=== PATIENT | female | born 1975 | race Caucasian/White ===

== ENCOUNTER 2016-09-05 11:27 | Emergency (ER) | payer BC ==
[2016-09-05 12:06] LABS: BLOOD UREA NITROGEN 8 mg/dL (7-17); CALCIUM 9.9 mg/dL (8.4-10.2); CHLORIDE 105 mmol/L (98-107); EST GLOMERULAR FILTRATION RATE > 60 mL/min; GLUCOSE 94 mg/dL (70-100); SODIUM 139 mmol/L (137-145)
[2016-09-05 12:30] LABS: TROPONIN I < 0.012 ng/mL (0.00-0.034)
--- NOTE | 2016-09-05 13:07 | CT REPORT ---
HISTORY: Chest pain and shortness of breath COMPARISON: None. TECHNIQUE: This examination was performed using automated exposure control, adjustment of mA or kV according to patient size, and/or use of iterative reconstruction technique. Axial CT imaging from the thoracic i nlet through the upper abdomen following administration of IV contrast during peak opacification of t he pulmonary arteries, multiplanar reformatted and 3-D images are evaluated. Isovue-370 administered IV. FINDINGS: 4 mm nodule right middle lobe adjacent to the fissure favored benign. Reference series 5 image 46. Th ere is no consolidation. No effusion or pneumothorax. Ground glass opacity in the left upper lobe maryam suring 8 mm. Reference series 5 image [address] Please consider CT in 6-12 months. Cardiac structures and great vessels are unremarkable. There is no pathologic mediastinal or hilar ad enopathy. There is no focal bone lesion. The visualized organs of the upper abdomen are unremarkable. Descending aorta, aortic arch, descending thoracic aorta widely patent, visualized portions of the in nominate artery, left and right subclavian, left and right vertebral, and left and right common carot id arteries patent, no aneurysm, dissection, or flow limiting stenosis. IMPRESSION: 1. No evidence of an acute pulmonary embolism. 2. An 8 mm ground glass nodule left upper lobe, recommend follow-up in 6-12 months per Fleischner Soc iety criteria. 3. Additional 4 mm right middle lobe nodule is favored benign, attention at follow-up. Final Electronic Signature: This report was electronically signed by Nir Dewitt MD on 09/05/2016 1:05 PM. [facility] / / [employer] [phone]
--- NOTE | 2016-09-05 13:54 | ER NURSING DOCUMENTATION ---
Nurse's Notes [facility] Name:Dasha Hinson Age:40 yrs Sex:Female :1975 Arrival Date:09/05/2016 Time:11:27 BedTrauma-B Private MD: Diagnosis:Chest Pain, Other Presentation: 09/05 11:30 Presenting complaint: Patient states: SOB and chest pain. Transition of care: Home. lp 11:30 Acuity: STEPHANIE 2 lp 11:30 Method Of Arrival: Private Vehicle lp Triage Assessment: 11:34 General: Appears in no apparent distress, Behavior is appropriate for age. Pain: lp Complains of pain in anterior aspect of right upper chest and anterior aspect of left upper chest. Respiratory: Reports shortness of breath at rest on exertion Onset: The symptoms/episode began/occurred gradually, the patient has moderate shortness of breath. Historical: - Allergies: Reglan; Toradol; - Home Meds: 1. Synthroid 50 mcg oral tab 1 tab once daily 2. Flagyl 500 mg oral tab 1 tab every 6 hours for Bacterial Vaginosis - PMHx: HYPOTHYROIDISM; - PSHx: None; - Tetanus: < 10 years. - Ebola Screening: : Patient negative for fever greater than or equal to 101.5 degrees Fahrenheit, and additional compatible Ebola Virus Disease symptoms. Patient denies exposure to infectious person. Patient denies travel to an Ebola-affected area in the 21 days before illness onset. . - Immunization history: Flu Vaccine < 1 year Flu Vaccine unknown. - Social history: Smoking status: Patient states was never smoker of tobacco. Screenin:35 Infectious Disease Risk None. Abuse screen: Denies threats or abuse. Denies injuries lp from another. Nutritional screening: No deficits noted. Assessment: 11:35 Cardiovascular: Rhythm is sinus rhythm. Respiratory: Airway is patent Respiratory lp effort is even, unlabored, Breath sounds are clear. 12:25 Respiratory: Reports shortness of breath at rest O2 sats at 96% RA. Patient placed on lpr oxygen for comfort. Dr. Barajas notified of same. Vital Signs: 11:28 BP 144 / 89 (auto/); lpr 11:33 BP 144 / 89; Pulse 96; Resp 16; Temp 98.2(TE); Pulse Ox 92% on R/A; Weight 56.7 kg; lp Height 5 ft. 7 in. (170.18 cm); Pain 3/10; 11:33 Pulse 99 MON; Resp 18; Pulse Ox 95% ; Pain 7/10; lpr 12:30 BP 138 / 79 (auto/); lpr 12:33 Pulse 105 MON; Resp 18; Pulse Ox 98% ; lpr 12:47 BP 129 / 92 (auto/); lpr 12:48 Pulse 100 MON; Resp 17; Pulse Ox 97% on R/A; lpr 13:02 BP 126 / 82 (auto/); lp 13:03 Pulse 105 MON; Resp 10; Pulse Ox 95% ; lp 13:13 Pulse 95 MON; Resp 12; Pulse Ox 95% ; lp 13:15 BP 120 / 79 (auto/); lp 13:28 Pulse 93 MON; Resp 14; Pulse Ox 93% ; lp 13:30 BP 99 / 77 (auto/); lp 13:33 Pulse 96 MON; Resp 20; Pulse Ox 92% ; lp 13:34 BP 122 / 83 (auto/); lp 13:40 BP 122 / 83; Pulse 97; Resp 16; Pulse Ox 93% on R/A; lp 11:33 Body Mass Index 19.58 (56.70 kg, 170.18 cm) lp ED Course: 11:27 Patient arrived in ED. dp 11:30 Kari Gallegos, CHUCK is Primary Nurse. lp 11:30 Triage completed. lp 11:32 Miguel Barajas MD is Attending Physician. jm 11:[address] Barajas notified. lp 11:35 Valuables Remains with patient Patient has correct armband on for positive lp identification. Placed in gown. Bed in low position. Call light in reach. Side rails up X 1. 12:11 Notified ED physician, Dr. Barajas of critical lab value for D-Dimer with actual value of lpr 725 New orders were received and entered into [employer]. 12:34 Inserted saline lock: 18 gauge in left antecubital area. lpr 12:51 Patient moved back from CT. lpr 13:10 EKG attached lp 13:40 Discontinued IV bleeding controlled, pressure dressing applied. lp Administered Medications: No medications were administered Outcome: 13:17 Discharge ordered by . jm 13:40 Discharged to home ambulatory. lp 13:40 Condition: stable 13:48 Instructed on discharge instructions, follow up and referral plans. medication usage. lp 13:53 Patient left the ED. lp Signatures: Kari Gallegos RN RN lp Meyer, John, MD MD jm Roberts, Leslie, RN RN lpr Palacios, Denise dp
--- NOTE | 2016-09-05 13:54 | ER PHYSICIAN DOCUMENTATION ---
Physician Documentation [facility] Name:Dasha Hinson Age:40 yrs Sex:Female :1975 Arrival Date:09/05/2016 Time:11:27 BedTrauma-B Private MD: Miguel Bazzi Disposition: 09/05/16 13:17 Discharged to Home/Self Care. Impression: Chest Pain, Other. - Condition is Good. - Discharge Instructions: Chest Pain - CHEST PAIN, Uncertain Cause. - Medical Reconciliation form form. - Follow up: Private Physician; When: As needed; Reason: Continuance of care. - Problem is new. - Symptoms have improved. HPI: 09/05 15:39 This 40 yrs old Female presents to ER via Private Vehicle with complaints of jm Shortness Of Breath, Chest Pain. 15:39 The patient has shortness of breath at rest. Onset: The symptom(s)/episode jm began/occurred just prior to arrival. Duration: The symptoms are continuous. The patient's shortness of breath has no apparent modifying factors. Associated signs and symptoms: Pertinent positives: chest pain. Severity of symptoms: in the emergency department the symptoms are unchanged. The patient has not experienced similar symptoms in the past. The patient has not recently seen a physician. [place] days and has been more winded than pervious trips. Today she also had some CP.. Historical: - Allergies: Reglan; Toradol; - Home Meds: 1. Synthroid 50 mcg oral tab 1 tab once daily 2. Flagyl 500 mg oral tab 1 tab every 6 hours for Bacterial Vaginosis - PMHx: HYPOTHYROIDISM; - PSHx: None; - Tetanus: < 10 years. - Ebola Screening: : Patient negative for fever greater than or equal to 101.5 degrees Fahrenheit, and additional compatible Ebola Virus Disease symptoms. Patient denies exposure to infectious person. Patient denies travel to an Ebola-affected area in the 21 days before illness onset. . - Immunization history: Flu Vaccine < 1 year Flu Vaccine unknown. - Social history: Smoking status: Patient states was never smoker of tobacco. ROS: 15:39 Constitutional: Negative for fatigue, fever. jm 15:39 ENT: Negative for rhinorrhea, sinus congestion, sinus pain, sore throat. 15:39 Cardiovascular: Positive for chest pain. 15:39 Respiratory: Positive for shortness of breath. 15:39 Abdomen/GI: Negative for abdominal pain, nausea, vomiting, diarrhea. 15:39 Back: Negative for pain at rest, pain with movement. 15:39 Psych: Positive for anxiety. 15:39 All other systems are negative. Exam: 15:39 Constitutional: The patient appears alert, awake. jm 15:39 Eyes: Periorbital structures: appear normal, Conjunctiva: normal. 15:39 ENT: Nose: is normal, Mouth: is normal. 15:39 Neck: Thyroid: appears normal, Trachea: is midline with no obvious abnormalities. 15:39 Chest/axilla: Inspection: normal, Palpation: is normal. 15:39 Cardiovascular: Rate: tachycardic, Rhythm: regular, . 15:39 Respiratory: Respirations: normal, Breath sounds: are normal. 15:39 Abdomen/GI: Bowel sounds: normal, Palpation: abdomen is soft and non-tender. 15:39 Musculoskeletal/extremity: Circulation is intact in all extremities. Sensation intact. 15:39 Skin: Appearance: Color: pink, induration, is not appreciated. 15:39 Neuro: Mentation: is normal, Memory: is normal. 15:39 Psych: Behavior/mood is pleasant, cooperative, Affect is calm. Vital Signs: 11:28 BP 144 / 89 (auto/); lpr 11:33 BP 144 / 89; Pulse 96; Resp 16; Temp 98.2(TE); Pulse Ox 92% on R/A; Weight 56.7 kg; lp Height 5 ft. 7 in. (170.18 cm); Pain 3/10; 11:33 Pulse 99 MON; Resp 18; Pulse Ox 95% ; Pain 7/10; lpr 12:30 BP 138 / 79 (auto/); lpr 12:33 Pulse 105 MON; Resp 18; Pulse Ox 98% ; lpr 12:47 BP 129 / 92 (auto/); lpr 12:48 Pulse 100 MON; Resp 17; Pulse Ox 97% on R/A; lpr 13:02 BP 126 / 82 (auto/); lp 13:03 Pulse 105 MON; Resp 10; Pulse Ox 95% ; lp 13:13 Pulse 95 MON; Resp 12; Pulse Ox 95% ; lp 13:15 BP 120 / 79 (auto/); lp 13:28 Pulse 93 MON; Resp 14; Pulse Ox 93% ; lp 13:30 BP 99 / 77 (auto/); lp 13:33 Pulse 96 MON; Resp 20; Pulse Ox 92% ; lp 13:34 BP 122 / 83 (auto/); lp 13:40 BP 122 / 83; Pulse 97; Resp 16; Pulse Ox 93% on R/A; lp 11:33 Body Mass Index 19.58 (56.70 kg, 170.18 cm) lp MDM: 11:29 Patient medically screened. 13:10 EKG attached lp 15:44 Differential diagnosis: Anxiety Reaction Psychogenic Pulmonary Embolism. Data reviewed: [place] vital signs, nurses notes, lab test result(s), EKG, radiologic studies, and as a result, I will discharge patient. Test interpretation: by ED physician or midlevel provider: ECG. Counseling: I had a detailed discussion with the patient and/or guardian regarding: the historical points, exam findings, and any diagnostic results supporting the discharge/admit diagnosis, lab results, radiology results, the need for outpatient follow up, with the patient's primary care provider. ECG:. ED course: Ddimer elevated so CT chest was done. This was negative. CP has been present for over 4 hours and EKG trop was normal. HR can jump to 130's in an instant when you start talking about a PE's, so I feel pt is an anxious person. Pt told she is free to continue to hike and f/u w PCP back home. . 09/05 12:13 Order name: DDIMER; Complete Time: 12:48 EDNM 09/05 12:15 Interpretation: Abnormal. 09/05 12:30 Order name: BASIC METABOLIC PANEL; Complete Time: 12:48 EDNM 09/05 12:30 Order name: TROPONIN I; Complete Time: 12:48 EDNM 09/05 12:38 Order name: HCG, SERUM; Complete Time: 12:48 EDNM 09/05 13:08 Order name: CAT SCAN; CHEST ANGIO [id number] EDNM 09/05 11:35 Order name: 12-lead EKG; Complete Time: 11:42 09/05 12:52 Order name: Oxygen; Complete Time: 12:52 lpr 09/05 12:52 Order name: Cardiac Monitoring - Continuous; Complete Time: 12:52 lpr 09/05 12:52 Order name: Pulse Ox Continuous; Complete Time: 12:52 lpr EC:44 Rhythm is regular. QRS [place] is Normal. [place] interval is normal. QRS interval is normal. QT interval is normal. No Q waves. T waves are Normal. No ST changes noted. Dispensed Medications: No medications were administered Signatures: Kari Gallegos, CHUCK RN Miguel Jenkins MD MD jm Roberts, Leslie, RN RN lpr
== END 2016-09-05 13:54 | disposition home or self-care (01) ==
LOC: ER 11:27
DX: R07.9 Chest pain, unspecified (principal); R06.02 Shortness of breath; R79.1 Abnormal coagulation profile; F41.9 Anxiety disorder, unspecified; Z79.899 Other long term (current) drug therapy
CPT/HCPCS: 36415; 71275; 80048; 84484; 84703; 85379; 99284